=== PATIENT | female | born 1975 | race Caucasian/White ===

== ENCOUNTER 2016-12-24 21:13 | Emergency (ER) | payer MEDICAID, OTHER ==
[~2016-12-24] VITALS: Ht 162.6 cm; Wt 83.9 kg
[2016-12-24 21:24] VITALS: BP 145/106
== END 2016-12-24 22:35 | disposition left against medical advice (07) ==
LOC: ER 21:15
DX: R06.02 Shortness of breath (principal); R05 Cough; J45.909 Unspecified asthma, uncomplicated; Z53.21 Procedure and treatment not carried out due to patient leaving prior to being seen by health care provider